=== PATIENT | female | born 1955 | race Caucasian/White ===

== ENCOUNTER 2025-06-17 18:57 | Inpatient (IN) | payer BC, SELFPAY ==
[2025-06-17 10:27] VITALS: BP 132/81
[2025-06-17 11:00] LABS: Hematocrit 41.9 % (37.0-47.0); Hemoglobin 14.3 g/dL (12.0-16.0); Mean Corp Hgb Conc. 34.1 g/dL (33.0-37.0); Mean Corpuscular Volume 91.9 fL (81.0-99.0); Nucleated Red Blood Cells % 0 %; Platelet Count 210 10^3/uL (130-400); Red Cell Dist. Width 12.9 % (11.5-14.5)
[2025-06-17 11:03] LABS: Urine Character Clear (Clear)
[2025-06-17 11:23] LABS: ALT (SGPT) 29 U/L (0-35); AST (SGOT) 24 U/L (14-36); Albumin 4.5 g/dl (3.5-5.0); Alkaline Phosphatase 68 U/L (38-126); Blood Urea Nitrogen 9 mg/dl (7-17); Calcium 9.2 mg/dl (8.4-10.2); Carbon Dioxide 26 mmol/L (22-30); Chloride 105 mmol/L (98-107); Glucose 99 mg/dl (70-99); Lipase 116 U/L (23-300); Potassium 4.2 mmol/L (3.5-5.1); Sodium 137 mmol/L (135-145); Total Protein 7.1 g/dl (6.3-8.2); eGFR > 60.00
[2025-06-17 11:27] LABS: Urine Red Blood Cell 0-2 /HPF (0-2); Urine Squamous Cell 21-25 /LPF (Few); Urine White Cell 0-2 /HPF (0-5)
--- NOTE | 2025-06-17 13:00 | EDRN ---
Pt started to drink for CT scan.
--- NOTE | 2025-06-17 13:10 | ED.GENMED ---
History of Present Illness
<Khushbu Gan MUNICIPAL COURT JUDGE - Last Filed: 06/17/25 17:11>
General
Chief Complaint: Abdominal Pain
Source: patient
Exam Limitations: none
Time Seen by Provider: 06/17/25 12:57
Nursing documentation reviewed up to this point in time: agreed with
History of Present Illness
History of Present Illness:
70-year-old female with history of cardiac catheterization, HLD, presents for abdominal pain. She states yesterday she felt a little queasy and around 2 PM had a low-grade fever of 99 8 with chills, by last night her fever was 101.8, she
did not sleep well due to pain across her mid abdomen and this morning woke up with the pain localized more to the right side of her abdomen. At rest the pain is 1/10 with palpation it goes to 5/10. She has had no vomiting. Her appetite has been
poor since yesterday. Last bowel movement 2 days ago. Denies UTI symptoms. No aggravating or relieving factors.
Past History
<Khushbu Gan MUNICIPAL COURT JUDGE - Last Filed: 06/17/25 17:11>
Past History
ED Past Medical History: Other (ASCVD on Repatha)
ED Past Surgical History: Cardiac (Cardiac stent), and Orthopedic
Social History
Tobacco: Non-smoker
Alcohol: None
Drug: None
Personal:
Living: with family
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
Family History
Family History: CAD
Review of Systems
<Khushbu Gan MUNICIPAL COURT JUDGE - Last Filed: 06/17/25 17:11>
Review of Systems
Allergies reviewed?: Yes
All Other Systems: ROS reviewed and negative except as documented in HPI and ROS
Phy Exam
<Khushbu Gan, MUNICIPAL COURT JUDGE - Last Filed: 06/17/25 17:11>
Physical Exam
Physical Exam:
GENERAL: No acute distress. A&Ox3.
CONSTITUTIONAL: Afebrile.
EYES: clear, conjunctivae normal
ENMT: moist mucus membranes
RESPIRATORY: Regular respirations, nonlabored, lungs clear.
CARDIOVASCULAR: Regular rate and rhythm, no murmurs, no rubs.
GI: Soft, mild tenderness, no guarding when palpation left upper quadrant and right upper quadrant tender, normal BS
MUSCULOSKELETAL: Moves with ease. Well perfused.
SKIN: Warm, dry, pink
PSYCH: Normal mood and affect. Well kept, interactive and appropriate
NEUROLOGIC: Awake, alert and oriented. No focal neurological deficits
Course
Jessicalt;Khushbu Gan MUNICIPAL COURT JUDGE - Last Filed: 06/17/25 17:11>
Orders/Labs/Results
Orders:
Orders
06/17/25 10:42
Complete Blood Count/With Diff Urgent
Comprehensive Metabolic Panel Urgent
Lipase Urgent
Urinalysis Reflex To Culture Urgent
Date Specimen was Collected: 06/17/25
Time Specimen was Collected: 10:31
Urine Microscopic Reflex Cult Urgent
06/17/25 13:09
CT Abd/pel W Iv And Oral Contr Urgent
Comment:
Reason For Exam: general abd pain, more in RUQ
Iohexol [Omnipaque] See Protocol PO NOW STA
06/17/25 13:10
Iohexol [Omnipaque] 50 ml .ROUTE .[facility]
US Abdomen Complete/Upper Urgent
Comment:
Reason For Exam: RUQ pain
06/17/25 17:08
Piperacillin/Tazo 3.375 Gram [Zosyn] 3.375 gram in 50 ml IV NOW
06/17/25 18:21
Admit/Transfer Patient As Directed
Co-Sign Provider:
Level of Care: Inpatient admission
Assign to:: Medical/Surgical
Physician / Group: Jakub Law
Diagnosis: Diverticulitis with perforation
Reason for Hospitalization: Diverticulitis with perforation
Expected length of stay greater than two midnights?: Yes
ELOS- Estimated Length of Stay in days: 3
I certify the patient meets the requirements for IP care: Yes
06/17/25 18:22
PRN Pain Medication Management As Directed
May give lesser potent ordered pain med per pt: Yes
preference::
Protocol:: Medication orders for pain may be administered in a
manner that supports deferring to patient preference
when the pt is:
- Requesting an ordered lesser potent pain medication.
Least to most potent pain medications are defined
as: acetaminophen < NSAID < tramadol < opioids
(morphine, oxycodone, hydromorphone).
- Requesting a lesser dose of the same medication IF
ORDERED.
- Requesting a less intrusive route of administration
if both routes are prescribed by the provider (PO <
IV).
06/17/25 18:24
Code Status As Directed
Resuscitation Status: Full Code
Abnormal Lab Results
06/17/25
10:42
WBC 15.0 H 10^3/uL
(4.8-10.8)
MCH 31.4 H pg
(27.0-31.0)
Abs Immat Gran (auto) 0.1 H 10^3/uL
(0-0.05)
Absolute Neuts (auto) 11.8 H 10^3/uL
(1.4-6.5)
Absolute Monos (auto) 1.2 H 10^3/uL
(0.1-0.6)
Neutrophils % 78.4 H %
(42.2-75.2)
Lymphocytes % 10.6 L %
(20.5-51.1)
Total Bilirubin 2.4 H mg/dl
(0.2-1.3)
Urine Ketones 2+ A
(Negative)
Ur Occult Blood Reflex 2+ A
(Negative)
Urine Bacteria (Reflex) Few A
(Negative)
Urine Albumin (Reflex) 1+ A
(Neg - Trace)
06/17/25 10:42
06/17/25 10:42
Vital Signs
Initial and Last Documented VS:
Initial Vital Signs
Temp Pulse Resp BP Pulse Ox
98.2 F 69 16 132/81 98
06/17/25 10:27 06/17/25 10:27 06/17/25 10:27 06/17/25 10:27 06/17/25 10:27
Last Documented Vital Signs
Temp Pulse Resp BP Pulse Ox
98.6 F 69 18 110/74 97
06/17/25 16:34 06/17/25 19:26 06/17/25 19:26 06/17/25 19:25 06/17/25 19:45
<Gus Banks, DO - Last Filed: 06/17/25 20:04>
Orders/Labs/Results
Orders:
Orders
06/17/25 10:42
Complete Blood Count/With Diff Urgent
Comprehensive Metabolic Panel Urgent
Lipase Urgent
Urinalysis Reflex To Culture Urgent
Date Specimen was Collected: 06/17/25
Time Specimen was Collected: 10:31
Urine Microscopic Reflex Cult Urgent
06/17/25 13:09
CT Abd/pel W Iv And Oral Contr Urgent
Comment:
Reason For Exam: general abd pain, more in RUQ
Iohexol [Omnipaque] See Protocol PO NOW STA
06/17/25 13:10
Iohexol [Omnipaque] 50 ml .ROUTE .[facility]
US Abdomen Complete/Upper Urgent
Comment:
Reason For Exam: RUQ pain
06/17/25 17:08
Piperacillin/Tazo 3.375 Gram [Zosyn] 3.375 gram in 50 ml IV NOW
06/17/25 18:21
Admit/Transfer Patient As Directed
Co-Sign Provider:
Level of Care: Inpatient admission
Assign to:: Medical/Surgical
Physician / Group: Jakub Law
Diagnosis: Diverticulitis with perforation
Reason for Hospitalization: Diverticulitis with perforation
Expected length of stay greater than two midnights?: Yes
ELOS- Estimated Length of Stay in days: 3
I certify the patient meets the requirements for IP care: Yes
06/17/25 18:22
PRN Pain Medication Management As Directed
May give lesser potent ordered pain med per pt: Yes
preference::
Protocol:: Medication orders for pain may be administered in a
manner that supports deferring to patient preference
when the pt is:
- Requesting an ordered lesser potent pain medication.
Least to most potent pain medications are defined
as: acetaminophen < NSAID < tramadol < opioids
(morphine, oxycodone, hydromorphone).
- Requesting a lesser dose of the same medication IF
ORDERED.
- Requesting a less intrusive route of administration
if both routes are prescribed by the provider (PO <
IV).
06/17/25 18:24
Code Status As Directed
Resuscitation Status: Full Code
Abnormal Lab Results
06/17/25
10:42
WBC 15.0 H 10^3/uL
(4.8-10.8)
MCH 31.4 H pg
(27.0-31.0)
Abs Immat Gran (auto) 0.1 H 10^3/uL
(0-0.05)
Absolute Neuts (auto) 11.8 H 10^3/uL
(1.4-6.5)
Absolute Monos (auto) 1.2 H 10^3/uL
(0.1-0.6)
Neutrophils % 78.4 H %
(42.2-75.2)
Lymphocytes % 10.6 L %
(20.5-51.1)
Total Bilirubin 2.4 H mg/dl
(0.2-1.3)
Urine Ketones 2+ A
(Negative)
Ur Occult Blood Reflex 2+ A
(Negative)
Urine Bacteria (Reflex) Few A
(Negative)
Urine Albumin (Reflex) 1+ A
(Neg - Trace)
06/17/25 10:42
06/17/25 10:42
Vital Signs
Initial and Last Documented VS:
Initial Vital Signs
Temp Pulse Resp BP Pulse Ox
98.2 F 69 16 132/81 98
06/17/25 10:27 06/17/25 10:27 06/17/25 10:27 06/17/25 10:27 06/17/25 10:27
Last Documented Vital Signs
Temp Pulse Resp BP Pulse Ox
98.6 F 69 18 110/74 97
06/17/25 16:34 06/17/25 19:26 06/17/25 19:26 06/17/25 19:25 06/17/25 19:45
<Khushbu Gan, MUNICIPAL COURT JUDGE - Last Filed: 06/17/25 17:11>
MDM/Problems Addressed
Differential Diagnosis Includes:
Cholelithiasis, cholecystitis, appendicitis, colitis
MDM/Problems Addressed:
70-year-old female with history of cardiac catheterization, HLD, presents for abdominal pain. She states yesterday she felt a little queasy and around 2 PM had a low-grade fever of 99 8 with chills, by last night her fever was 101.8, she
did not sleep well due to pain across her mid abdomen and this morning woke up with the pain localized more to the right side of her abdomen. At rest the pain is 1/10 with palpation it goes to 5/10. She has had no vomiting. Her appetite has been
poor since yesterday. Last bowel movement 2 days ago. Denies UTI symptoms. No aggravating or relieving factors.
Afebrile, NAD
CBC: WBC 15.0
CMP with bilirubin of 2.4 otherwise unremarkable
UA negative for infection
2:30 PM:
Ultrasound upper abdomen radiology report read: IMPRESSION:No acute hepatobiliary abnormalities.
Will proceed to CT
5:00 PM: CAT scan abdomen pelvis with p.o. and IV contrast radiology report read: IMPRESSION:
1. ACUTE DIVERTICULITIS of the MID ASCENDING COLON with a large amount of pericolonic inflammation and possibly minimal extraluminal air.
2. No CT evidence for pericolonic abscess or pneumoperitoneum.
3. Moderate diverticulosis in the sigmoid colon.
4. Mild to moderate polycystic liver disease.
5. Severe multilevel lumbar discogenic degenerative disease and facet joint arthrosis.
5:[address] Banks who examined pt
Plan: Admit: Diverticulitis with perforation
Hospitalist notified of admission.
<Khushbu Gan MUNICIPAL COURT JUDGE - Last Filed: 06/17/25 17:11>
*Pulse Oximetry
SaO2: 98
Oxygen Mode of Delivery: Room air
Patient hypoxic: not evaluated
*Critical Care Note
Total Time (30-74mins, 75-104mins- exclusive of procedures): Not Applicable
ED Attending Note
<Khushbu Gan MUNICIPAL COURT JUDGE - Last Filed: 06/17/25 17:11>
-
Portions of this chart may have been created with voice recognition software.� Occasional wrong word or��sound alike� substitutions may have occurred due to the inherent limitations of voice recognition software.
<Gus Banks, DO - Last Filed: 06/17/25 20:04>
ED Attending Note
Patient seen and examined by attending physician: Yes
ED Attending Note:
I reviewed and agree with history and treatment plan by Mary gan. My exam revealed 70-year-old female in no acute distress. CT abdomen pelvis showing diverticulitis with likely small perforation. Hospitalist IV Zosyn given.
Discharge Plan
Departure
Patient Disposition: Admit
Date of Disposition: 06/17/25
Time of Disposition: 17:09
Admit to: Med/Surg
Presentation/result/management discussed w/ accepting MD/DO: Hospitalist
Condition: Fair
Discharge Problem:
Diverticulitis of colon with perforation
Interventions
Interventions:
*Risk Screen - Suicide Last Done: 06/17/25 10:27
*General Assessment Last Done: 06/17/25 13:14
*Neglect/Abuse Screening Last Done: 06/17/25 10:27
*ED- Fall Risk Assessment Last Done: 06/17/25 13:14
VP-Pwxoqx-Pvbnhuedyq Assessment Last Done: 06/17/25 13:14
[2025-06-17] MEDS: OMNIPAQUE 50 ML PO (13:15)
[2025-06-17 14:36] VITALS: BP 121/78
[2025-06-17 16:34] VITALS: BP 140/86
--- NOTE | 2025-06-17 17:23 | PHANOTE ---
med rec note-patient not upstanding the importance over going over mediation, unable to get great description about testosterone compound medication also patient does not want to go over vitamins or otc medication
--- NOTE | 2025-06-17 17:25 | HPS.HSE ---
Family Physician
-
Family Physician: VASILIY Kee
Chief Complaint
-
abdominal pain
History of Present Illness
Patient is a 70-year-old female with past medical history significant for hyperlipidemia and CAD who presented to [facility] ED for evaluation of abdominal pain. Patient reported that yesterday evening she had a low grade fever, mild nausea and poor
appetite. She states her abdominal pain was concentrated to the right side but more diffuse today. She went to Urgent Care this morning who referred her to ED for workup as they did not have any significant findings and were concerned for more
severe possibilities. She reports some constipation today. Denies chills, cough, shortness of breath, chest pain, vomiting, diarrhea or urinary symptoms.
Medical History
Past Medical History
Past Medical History: Reports Other
Additional Past Medical History:
hyperlipidemia
CAD
Past Surgical History: Reports Other
Additional Past Surgical History:
cardicac cath with stent
Social History
Tobacco: Non-smoker
Alcohol: Daily (glass of red wine daily )
Drug: None
Personal:
Living: With Family
Employment: Retired
Family History
Family History: Other (Father: CAD; Mother and 2 Sisters: Breast cancer )
Allergies / Home Medications
Allergies reflects when Allergies were last updated in [employer].
Home Medications with original date entered in [employer]
Allergy/Medication List:
Allergies
Allergy/AdvReac Type Severity Reaction Status Date / Time
bee pollen Allergy Swelling Verified 06/17/25 10:30
Home Medications
Testosterone/Estriol 1 supp VAG HS 09/28/16
aspirin 81 mg chewable tablet 81 mg PO DAILY 09/29/16
bismuth subsalicylate 262 mg/15 mL oral suspension (Pepto-Bismol) 262 mg PO DAILYPRN PRN gerd 06/17/25
evolocumab 140 mg/mL subcutaneous syringe (Repatha Syringe) 140 mg SC Q2W 06/17/25
Review of Systems
-
History Source: Patient
Constitutional: Reports Fever; Denies Chills
EENT: Denies Sore Throat
Respiratory: Denies Cough or Trouble Breathing
Cardiac: Denies Chest Pain, Diaphoresis, Palpitations or Syncope
Abdomen/GI: Reports Abdominal Pain, Nausea and Constipated; Denies Vomiting or Diarrhea
: Denies Dysuria, Frequency, Difficulty Voiding or Urgency
Skin: Denies Rash
Neurological: Denies Dizzy, Headache, Weakness or Numbness
Endocrine: Denies Polyuria or Polydipsia
Physical Exam
Vital Signs
Vital Signs
Temp Pulse Resp BP Pulse Ox
98.6 F 78 18 140/86 98
06/17/25 16:34 06/17/25 16:34 06/17/25 16:34 06/17/25 16:34 06/17/25 16:34
Physical Exam
General: Well Developed, Well Nourished, No Apparent Distress and Conversant
HEENT: NormoCephalic, Moist mucous membranes, Nose Appears Normal and Ears Appear Normal
Respiratory: Clear and Non Labored Respirations; No Wheezes, Rales or Rhonchi
Cardiac: S1/S2 and Regular Rhythm; No Murmur, Rub or Gallop
GI: Soft, Normal Bowel Sounds and Tender (mild tenderness )
Rectal: Deferred by Provider
Genito-urinary: Deferred by me
Musculoskeletal: No Clubbing, No Cyanosis and No Edema
Skin: Warm and IV/Catheter Site
Neuro: Awake and AO x 3
Hematologic/Lymphatic: No Lymphadenopathy
Psych: Calm and Intact Judgment/Insight
Laboratory Results
-
06/17/25 10:42
06/17/25 10:42
Laboratory Results
Total Bilirubin 2.4 mg/dl (0.2-1.3) H 06/17/25 10:42
AST 24 U/L (14-36) 06/17/25 10:42
ALT 29 U/L (0-35) 06/17/25 10:42
Alkaline Phosphatase 68 U/L (38-126) 06/17/25 10:42
Lipase 116 U/L (23-300) 06/17/25 10:42
Data Reviewed
-
CT Scan: Report Reviewed by me (Abd/Pel: 1. ACUTE DIVERTICULITIS of the MID ASCENDING COLON with a large amount of pericolonic inflammation and possibly minimal extraluminal air. 2. No CT evidence for pericolonic abscess or pneumoperitoneum. 3.
Moderate diverticulosis in the sigmoid colon. 4. Mild to moderate polycystic li)
Ultrasound: Report Reviewed by me (Abd: No acute hepatobiliary abnormalities)
Lab Data: Labs Reviewed by me (WBC 15.0, neut 78.4, )
Impression/Plan
-
IMPRESSION/PLAN:
#diffuse abdominal pain 2/2 cholelithiasis vs. cholecystitis vs. appendicitis vs. colitis
diffuse abdominal pain, low grade fever at home and nausea
WBC 15.0, neut 78.4
Abd/Pel CT: 1. ACUTE DIVERTICULITIS of the MID ASCENDING COLON with a large amount of pericolonic inflammation and possibly minimal extraluminal air.
2. No CT evidence for pericolonic abscess or pneumoperitoneum.
3. Moderate diverticulosis in the sigmoid colon.
4. Mild to moderate polycystic liver disease.
5. Severe multilevel lumbar discogenic degenerative disease and facet joint arthrosis.
Abd US: No acute hepatobiliary abnormalities
- Admit to med/surg
- IV Zosyn
- NPO
- supportive care
#hyperlipidemia
- continue Repatha out patient
#CAD
- continue aspirin
Code status: full code
DVT prophylaxis: Lovenox sq
--- NOTE | 2025-06-17 18:18 | W.PN.UPDATE ---
Update Note
Progress Note Update
This note serves as an addendum to the H&P by video game tester ERIK�
Melody Lorenzo
�
HPI
6F HX cardiac catheterization, HLD, sen at ER:
pw acute abdominal pain since yesterday
- little queasy and around 2 PM
- had a low-grade fever of 99 8 with chills, by last night her fever was 101.8
- cannot sleep well due to pain across her mid abdomen and this morning woke up with the pain localized more to the right side of her abdomen.
- At rest the pain is 1/10 with palpation it goes to 5/10.
- no vomiting.
- poor appetite
- Last bowel movement 2 days ago.
Denies UTI symptoms. No aggravating or relieving fa
Relevant VS
Temp Pulse Resp BP Pulse Ox
98.6 F 78 18 140/86 98
06/17/25 16:34 06/17/25 16:34 06/17/25 16:34 06/17/25 16:34 06/17/25 16:34
PE
GENERAL: No acute distress
HENMT: moist mucus membranes
Lungs: nonlabored, lungs clear.
CVS: RRR no murmurs, no rubs.
GI: Soft, eft upper quadrant and right upper quadrant tender, normal BS
MS Moves with ease. Well perfused.
SKIN: Warm, dry, pink
NEUROLOGIC: Awake, alert and oriented. No focal neurological deficits
Relevant Data
06/17/25
10:42
WBC 15.0 H
MCH 31.4 H
Abs Immat Gran (auto) 0.1 H
Absolute Neuts (auto) 11.8 H
Absolute Monos (auto) 1.2 H
Neutrophils % 78.4 H
Lymphocytes % 10.6 L
Total Bilirubin 2.4 H
Urine Ketones 2+ A
Ur Occult Blood Reflex 2+ A
Urine Bacteria (Reflex) Few A
Urine Albumin (Reflex) 1+ A
Abdominal US
No acute hepatobiliary abnormalities.
CT AP with IV contrast
1. ACUTE DIVERTICULITIS of the MID ASCENDING COLON with a large amount of pericolonic inflammation and possibly minimal extraluminal air.
2. No CT evidence for pericolonic abscess or pneumoperitoneum.
3. Moderate diverticulosis in the sigmoid colon.
4. Mild to moderate polycystic liver disease.
5. Severe multilevel lumbar discogenic degenerative disease and facet joint arthrosis.
NO PRIOR Last hospitalist admission:
ASSESSMENT & PLAN
Acute mid ascending colo diverticulitis with minimal extraluminal air
No CT evidence for pericolonic abscess or pneumoperitoneum.
- NPO with sips and ice chips and IVF
- Empiric Zosyn
- PRN narcotics analgesia and PRN antiemetics
- Serial abdominal exam
- Trend WCC
- CRS consult
DVT Px: LMWH
Full code
IP MS
[2025-06-17] MEDS: ZOSYN 50 IV ×2 (18:27→23:37)
[2025-06-17 19:25] VITALS: BP 110/74
[2025-06-17 20:23] VITALS: BMI 23.9
[2025-06-17 20:37] VITALS: BP 122/74
[2025-06-17] MEDS: NSS 1000 IV (20:47)
[2025-06-17 23:00] VITALS: BP 121/77
--- NOTE | 2025-06-17 23:53 | PTCARENOTE ---
Pt arrived via stretcher and ambulated to the bed. Pt oriented to unit, bed set in lowest position, side rails up, call weinstein within reach. Will continue plan of care.
[2025-06-18 05:41] LABS: Hematocrit 37.3 % (37.0-47.0); Hemoglobin 12.9 g/dL (12.0-16.0); Mean Corp Hgb Conc. 34.6 g/dL (33.0-37.0); Mean Corpuscular Volume 91.4 fL (81.0-99.0); Platelet Count 177 10^3/uL (130-400); Red Cell Dist. Width 12.6 % (11.5-14.5)
[2025-06-18] MEDS: ZOSYN 50 IV ×4 (05:50→23:55)
[2025-06-18 06:02] LABS: Blood Urea Nitrogen 11 mg/dl (7-17); Calcium 8.3 mg/dl (8.4-10.2); Carbon Dioxide 24 mmol/L (22-30); Chloride 109 mmol/L (98-107); Estimated Creatinine Clearance 37 ml/min; Glucose 73 mg/dl (70-99); Potassium 4.3 mmol/L (3.5-5.1); Sodium 139 mmol/L (135-145); eGFR > 60.00
[2025-06-18] MEDS: LOW STRENGTH ASPIRIN 81 MG PO (07:03)
[2025-06-18 07:09] VITALS: BP 109/69
[2025-06-18 07:40] LABS: ALT (SGPT) 22 U/L (0-35); AST (SGOT) 18 U/L (14-36); Albumin 3.6 g/dl (3.5-5.0); Alkaline Phosphatase 58 U/L (38-126); LDH 170 U/L (120-246); Total Protein 6.0 g/dl (6.3-8.2)
--- NOTE | 2025-06-18 08:14 | W.PN.HOSP.TC ---
Today's Communication/Plan
-
see PN
Assessment / Plan
Assessment / Plan
70yo F with PMHx of HLD, ASCVD came with acute onset of RLQ abd pain for 48h with constipation, found acute diverticulitis with large periluminal inflammation and possible intraluminal air
A/P:
#Acute uncomplicated diverticulitis
Ct with ACUTE DIVERTICULITIS of the MID ASCENDING COLON with a large amount of pericolonic inflammation and possibly minimal extraluminal air
ZOsyn
advance diet as tolerated
ColorectalSx cosnult
PAtient follows with GI in [facility] - advised to reach to them for eval for repeated colonoscopy upon resolution of acute disease
#Polycystic liver disease
follow with GI
#DJD
tylenol
PT
#HLD
#ASCVD
cont home meds
#Indirect bilirubinemia
The gallbladder, bile ducts, and pancreas appear normal on the CT
LDH NL, most Likely [facility]
follow LFT
#Constipation
resolved
DVT ppx lovenox
Full code
I have spent at least 55min reviewing chart, test results, communication with consultants and providing direct patient care
Anticipated Discharge: > 48 hours
Subjective/Interval History
-
Date of Service: June 18, 2025
Objective Data
-
Labs:
Laboratory Results
06/18/25
05:12
WBC 6.2
Hgb 12.9
Hct 37.3
Plt Count 177
Sodium 139
Potassium 4.3
Chloride 109 H
Carbon Dioxide 24
BUN 11
Creatinine 0.9
Glucose 73
Calcium 8.3 L
Total Bilirubin 1.6 H
AST 18
ALT 22
Alkaline Phosphatase 58
Vital Signs:
Vital Signs
Temp Pulse Resp BP Pulse Ox
97.8 F 61 17 109/69 98
06/18/25 07:09 06/18/25 07:09 06/18/25 07:09 06/18/25 07:09 06/18/25 07:09
Review of Systems
-
History Source: Patient
All other systems: Reviewed and negative
Abdomen/GI: Reports Abdominal Pain
Physical Exam
-
General: No Apparent Distress
HEENT: Normocephalic
GI: Soft, Nontender and Nondistended
Neuro: Awake, Alert, Oriented and AO x 3
[2025-06-18 08:15] LABS: Reticulocyte Count 1.5 % (0.4-2.8)
[2025-06-18] MEDS: NSS 1000 IV ×2 (09:21→22:40)
--- NOTE | 2025-06-18 09:22 | CON.CRS ---
Consultation
-
Date/Time Consultation Requested: 06/18/2025, 07:06
Date/Time Consultation Performed: 06/18/2025, 08:40
Requesting Provider: Lui Key MD
Performing Provider: Bello Rodriguez MD
Reason for Consultation: diverticulitis
Medical History
-
Chief Complaint: diverticulitis
History of Present Illness:
70-year-old female with a past medical history of CAD and hypercholesterolemia, presents to [facility] on 06/17/2025 complaining of abdominal pain. She states the pain started about 3 days ago. She took her temperature at home and it was 99
202 in range. She also noted she had no appetite whatsoever. Later that night around 8 PM the right lower quadrant pain increased and has remained the same since. She has not noticed any blood in her stool. Denies nausea or vomiting. Originally
she was constipated but now she has loose stools. She notes her abdominal pain is actually worse today. Denies a family history of rectal or colon cancer. Denies any previous gastrointestinal issues. She did have an attack of diverticulitis
about 20 years ago. Her last colonoscopy was at the [facility] in 2023 and 1 polyp was noted as well as diverticulitis. She is due again in 2030. She was able to pull up the report on her iPad for our review.
CT of the abdomen and pelvis shows acute diverticulitis in the mid ascending colon with large amount of pericolonic inflammation and possibly minimal extraluminal air. There was also mild to moderate polycystic liver disease. Moderate
diverticulosis in the sigmoid colon. On admission her WBC was 15.0. Today it is 6.2. Her vitals have remained normal. She was started on IV antibiotics. Given the CT findings, we have been consulted for further surgical opinion.
Past Medical History
Past Medical History: CAD and Hypercholesterolemia
Past Surgical History: Cardiac (cath with stent)
Social History
Tobacco: Non-Smoker
Alcohol: Daily
Drug: None
Family History
Family History: Reviewed & Not Pertinent
Allergies / Home Medications
Allergy/AdvReac Type Severity Reaction Status Date / Time
bee pollen Allergy Swelling Verified 06/17/25 10:30
�Medication �Instructions �Recorded �Confirmed �Type
Testosterone/Estriol 1 supp VAG HS 09/28/16 06/17/25 History
aspirin 81 mg chewable tablet 81 mg PO DAILY 09/29/16 06/17/25 Rx
bismuth subsalicylate 262 mg/15 mL 262 mg PO DAILYPRN PRN gerd 06/17/25 06/17/25 History
oral suspension (Pepto-Bismol)
evolocumab 140 mg/mL subcutaneous 140 mg SC Q2W 06/17/25 06/17/25 History
syringe (Repatha Syringe)
Review of Systems
-
History Source: Patient
Abdomen/GI: Abdominal Pain, Diarrhea and Constipated
A 10 point review of systems was completed, and was negative except as per HPI.
Physical Exam
Vital Signs
Temp 97.8 F 06/18/25 07:09
Pulse 61 06/18/25 07:09
Resp Rate 17 06/18/25 07:09
Blood pressure 109/69 06/18/25 07:09
SaO2 98 06/18/25 07:09
06/17/25 06/18/25 06/19/25
06:59 06:59 06:59
Actual Weight 51.891 kg
Body Mass Index (BMI) 23.9
Lab Results / Allergies
06/18/25 05:12
06/18/25 05:12
WBC 6.2 10^3/uL (4.8-10.8) 06/18/25 05:12
Hgb 12.9 g/dL (12.0-16.0) 06/18/25 05:12
Hct 37.3 % (37.0-47.0) 06/18/25 05:12
Plt Count 177 10^3/uL (130-400) 06/18/25 05:12
Abs Immat Gran (auto) 0.1 10^3/uL (0-0.05) H 06/17/25 10:42
Neutrophils % 78.4 % (42.2-75.2) H 06/17/25 10:42
Allergy/AdvReac Type Severity Reaction Status Date / Time
bee pollen Allergy Swelling Verified 06/17/25 10:30
Physical Exam
General: Well Developed, Well Nourished and No Apparent Distress
GI: Soft, Non Distended and Tender (Mild right lower quadrant)
Data Reviewed
-
CT Scan: Image Personally Visualized and interpreted, Report Reviewed by me and Discussed with Patient
Labs: Labs Reviewed by me, Discussed with Physician and Discussed with Patient
Old Records: Reviewed
Assessment / Plan
-
Assessment: 70-year-old female with 1 previous attack of diverticulitis 20 years ago presents to the hospital with right lower quadrant pain for 3 days and found to have a ascending uncomplicated diverticulitis
Plan:
- Okay to advance to a clear liquid diet
- Maintain IV fluids
- Maintain IV antibiotics
- No plans for surgery at this time. If she worsens she will require a colectomy with colostomy creation.
[2025-06-18 15:19] VITALS: BP 131/76
--- NOTE | 2025-06-18 16:06 | CM ---
Pt admitted with acute diverticulitis. Currently on IV Zosyn Q6 hours. No current plan for surgical intervention. watch for home IV abx needs at discharge.
[employer] pt was (I) amb and adls; lives with her , Brennon in a 2 story home with 3 entry steps, 10 steps to the upper level.
Plan: Watch for home IV abx needs at discharge.
[2025-06-18 23:28] VITALS: BP 119/75
[2025-06-19] MEDS: ZOSYN 50 IV (05:25)
[2025-06-19 05:54] LABS: Hematocrit 36.9 % (37.0-47.0); Hemoglobin 12.3 g/dL (12.0-16.0); Mean Corp Hgb Conc. 33.3 g/dL (33.0-37.0); Mean Corpuscular Volume 91.3 fL (81.0-99.0); Nucleated Red Blood Cells % 0 %; Platelet Count 199 10^3/uL (130-400); Red Cell Dist. Width 12.5 % (11.5-14.5)
[2025-06-19 06:18] LABS: ALT (SGPT) 19 U/L (0-35); AST (SGOT) 17 U/L (14-36); Albumin 3.5 g/dl (3.5-5.0); Alkaline Phosphatase 52 U/L (38-126); Blood Urea Nitrogen 9 mg/dl (7-17); Calcium 8.6 mg/dl (8.4-10.2); Carbon Dioxide 21 mmol/L (22-30); Chloride 111 mmol/L (98-107); Estimated Creatinine Clearance 37 ml/min; Glucose 82 mg/dl (70-99); Potassium 4.3 mmol/L (3.5-5.1); Sodium 139 mmol/L (135-145); Total Protein 6.0 g/dl (6.3-8.2); eGFR > 60.00
[2025-06-19 07:00] VITALS: BP 129/76
[2025-06-19] MEDS: LOW STRENGTH ASPIRIN 81 MG PO (08:20)
--- NOTE | 2025-06-19 08:55 | W.PN.CRS1 ---
Today's Communication / Plan
-
low residue
if tolerates, okay for d/c
finish course of po abx as an outpatient
Assessment/Plan
-
Assessment: 70-year-old female with 1 previous attack of diverticulitis 20 years ago presents to the hospital with right lower quadrant pain for 3 days and found to have a ascending uncomplicated diverticulitis
Plan:
- Okay to advance to a low residue diet
- Maintain IV antibiotics
- No plans for surgery at this time. If she worsens she will require a colectomy with colostomy creation.
- If tolerating a low residue diet, okay for d/c from our perspective. Finish course of outpatient antibiotics. If increased pain while eating, recommend another day of IV abx.
Subjective Data
Subjective Data
Date of Service: June 19, 2025
Patient states she feels 'no different'. She has no nausea or vomiting. She has loose stools. She is not hungry. Her bowel movements are loose. She has mild pain around her umbilicus which she describes as 'sore'.
Objective Data
-
Vital Signs
Temp Pulse Resp BP Pulse Ox
98.0 F 68 18 129/76 97
06/19/25 07:00 06/19/25 07:00 06/19/25 07:00 06/19/25 07:00 06/19/25 07:00
Intake & Output
06/18/25 06/19/25 06/20/25
06:59 06:59 06:59
Intake Total 240 / 240
Balance 240 / 240
Intake:
Oral fluids 240 / 240
Other:
How many times incontinent 3
MODERATE amount urine
Number of approximated MODERATE 1 10
amounts of urine
Number of unmeasured liquid
stools
Rectum 8
Lab Results
06/19/25 05:08
06/19/25 05:08
Physical Exam
-
General: No Acute Distress and AOx3
Abdomen: Soft, Non Distended and Tender (mild around umbilicus)
Skin: Warm and Dry
--- NOTE | 2025-06-19 11:35 | W.PN.HOSP.TC ---
Today's Communication/Plan
-
dc
Assessment / Plan
Assessment / Plan
70yo F with PMHx of HLD, ASCVD came with acute onset of RLQ abd pain for 48h with constipation, found acute diverticulitis with large periluminal inflammation and possible intraluminal air. Leukocytosis resolved, tolerating diet. US abd showed no
hepatobiliary pathology and bilirubin normalized. As per agreement with [facility] - medically stable to d/c home to complete Abx. Verbalized understanding of the instructions to follow up with GI for colonoscopy in 4-6 weeks
A/P:
#Acute uncomplicated diverticulitis
Ct with ACUTE DIVERTICULITIS of the MID ASCENDING COLON with a large amount of pericolonic inflammation and possibly minimal extraluminal air
ZOsyn
advance diet as tolerated
[facility] cosnult
Patient follows with GI in [facility] - advised to reach to them for eval for repeated colonoscopy upon resolution of acute disease
#Polycystic liver disease
follow with GI
#DJD
tylenol
PT
#HLD
#ASCVD
cont home meds
#Indirect bilirubinemia
resolved
The gallbladder, bile ducts, and pancreas appear normal on the CT
LDH NL, most Likely [place]
follow LFT
#Constipation
resolved
DVT ppx lovenox
Full code
I have spent at least 36min reviewing chart, test results, communication with consultants and providing direct patient care
Anticipated Discharge: Today
Subjective/Interval History
-
Date of Service: June 19, 2025
Objective Data
-
Labs:
Laboratory Results
06/19/25
05:08
WBC 6.0
Hgb 12.3
Hct 36.9 L
Plt Count 199
Sodium 139
Potassium 4.3
Chloride 111 H
Carbon Dioxide 21 L
BUN 9
Creatinine 0.9
Glucose 82
Calcium 8.6
Total Bilirubin 1.0
AST 17
ALT 19
Alkaline Phosphatase 52
Vital Signs:
Vital Signs
Temp Pulse Resp BP Pulse Ox
98.0 F 68 18 129/76 97
06/19/25 07:00 06/19/25 07:00 06/19/25 07:00 06/19/25 07:00 06/19/25 07:00
I&O
06/18/25 06/19/25 06/20/25
06:59 06:59 06:59
Intake Total 240 / 240
Balance 240 / 240
Review of Systems
-
History Source: Patient
All other systems: Reviewed and negative
Abdomen/GI: Reports Abdominal Pain
Physical Exam
-
General: No Apparent Distress
HEENT: Normocephalic
Cardiac: Regular Rhythm
GI: Soft, Nondistended and Tender (R)
Neuro: Awake, Alert, Oriented and AO x 3
Psych: Calm
--- NOTE | 2025-06-19 12:19 | W.DCSUMMARY ---
Discharge Summary
Discharge Data
Date of Admission: 06/17/25
Date of Discharge: 06/19/25
-
Pending Results: No
Hospital Course
70yo F with PMHx of HLD, ASCVD came with acute onset of RLQ abd pain for 48h with constipation, found acute diverticulitis with large periluminal inflammation and possible intraluminal air. Leukocytosis resolved, tolerating diet. US abd showed no
hepatobiliary pathology and bilirubin normalized. As per agreement with [facility] - medically stable to d/c home to complete Abx. Verbalized understanding of the instructions to follow up with GI for colonoscopy in 4-6 weeks
I have spent at least 36min reviewing chart, test results, communication with consultants and providing direct patient care
Patient was managed for:
#Acute uncomplicated diverticulitis
#Polycystic liver disease
#DJD
#HLD
#ASCVD
#Indirect bilirubinemia
#Constipation
Discharge Plan
-
Patient Disposition: Home (Routine Discharge)
Discharge Diagnosis/Procedures: diverticulitis
Diet: Low Residue
Activity Restrictions/Additional Instructions:
Follow with GI for colonoscopy in 4-6 weeks and discuss liver cysts
Instructions: Low-fiber diet
Referrals:
Bello Rodriguez MD [Active, [facility]] - in three to four weeks
Meka Matthews CRNP [Family Provider, General]
Prescriptions:
New
amoxicillin-pot clavulanate 875-125 mg tablet
1 tab PO Q12H Qty: 18 0RF
Continued
Testosterone/Estriol
1 supp VAG HS
Patient Comments:
pdmp has compound powder filled on 03/13/25 for 90 days
aspirin 81 MG tablet,chewable
81 mg PO DAILY 0RF
bismuth subsalicylate [Pepto-Bismol] 262 mg/15 mL Suspension
262 mg PO DAILYPRN PRN (Reason: gerd)
Repatha Syringe 140 mg/mL Syringe
140 mg SC Q2W
Discharge Orders:
Discharge Patient (As Directed); Ordered 06/19/25
Ordered By: Lui Key
Discharge Date and Time
Print Language: MEXICAN
[2025-06-19] MEDS: NSS IV (12:30)
[2025-06-19] MEDS: ZOSYN IV (12:31)
[2025-06-19] MEDS: AUGMENTIN 875 MG/125 MG 1 TABLET PO (13:19)
[2025-06-19 13:32] VITALS: BP 125/82
--- NOTE | 2025-06-19 14:18 | CM ---
MD entered order for discharge.
Pt said she was ready for discharge .
ID changed her to po antibiotics.
Pt said she was ready for discharge.
Brennon her will drive her home.
Offered VN she declined need.
PLAN Home no needs
== END 2025-06-19 14:05 | disposition home or self-care (01) | DRG 392 ==
LOC: 3 WEST ACU 18:57
PROVIDERS: Emergency Medicine; Nurse Practitioner Family; ADMITTING PHYSICIAN Internal Medicine; ATTENDING PHYSICIAN Internal Medicine; EMERGENCY PHYSICIAN Emergency Medicine; FAMILY PHYSICIAN Nurse Practitioner; OTHER PHYSICIAN Surgery
DX: K57.20 Diverticulitis of large intestine with perforation and abscess without bleeding (principal); Q44.6 Cystic disease of liver; R17 Unspecified jaundice; I25.10 Atherosclerotic heart disease of native coronary artery without angina pectoris; E78.00 Pure hypercholesterolemia, unspecified; K59.00 Constipation, unspecified; Z82.49 Family history of ischemic heart disease and other diseases of the circulatory system; M47.819 Spondylosis without myelopathy or radiculopathy, site unspecified; Z79.82 Long term (current) use of aspirin; Z95.5 Presence of coronary angioplasty implant and graft
CPT/HCPCS: 74177; 76700; 80053; 81003; 81015; 82248; 83615; 83690; 85025; 85027; 85045; 99285; Q9967